=== PATIENT | male | born 1950 | race Caucasian/White ===

== ENCOUNTER 2020-03-11 09:56 | Outpatient (REF) | payer MEDICARE, SELFPAY ==
[2020-03-11 13:47] LABS: MANUAL DIFF FLAG NO
[2020-03-11 13:58] LABS: Basophils Percent Auto 0.5 % (0-2); Eosinophils Absolute Auto 0.4 X10*3/uL (0.0-0.4); Eosinophils Percent Auto 6.3 % (0-4); Hematocrit 39.3 % (42-52); Hemoglobin 13.3 g/dl (14.0-18.0); Imm Gran Abs Auto 0.01 X10*3/uL (0.00-0.03); Imm Gran Pct Auto 0.2 % (0.0-0.4); Lymphocytes Absolute Auto 1.1 X10*3/uL (1.2-4.9); Mean Corpuscular HGB Conc 33.8 g/dl (31.0-36.0); Mean Corpuscular Hemoglobin 30.6 pg (27.0-33.0); Mean Corpuscular Volume 90.6 fL (80-98); Monocytes Absolute Auto 0.4 X10*3/uL (0.1-1.2); Monocytes Percent Auto 6.4 % (2-11); Neutrophils Absolute Auto 3.7 X10*3/uL (2.0-8.3); Neutrophils Percent Auto 66.6 % (45-73); Platelet Count 268 X10*3/uL (160-400); Red Blood Count 4.34 X10*6/uL (4.60-5.80); Red Cell Distribution Width 12.3 % (11.0-16.0); White Blood Count 5.6 X10*3/uL (4.8-10.8)
[2020-03-11 14:15] LABS: Alanine Aminotransferase 24 U/L (0-40); Albumin Level 4.2 g/dL (3.5-5.0); Alkaline Phosphatase 70 U/L (39-117); Aspartate Amino Transferase 22 U/L (5-37); Bilirubin Direct 0.3 mg/dL (0.0-0.5); Bilirubin Total 0.9 mg/dL (0.0-1.0); C Reactive Protein 0.07 mg/dL (< or = 0.50); Rheumatoid Factor < 15.0 IU/mL (<15.0); Total Protein 6.8 g/dL (6.5-8.0)
[2020-03-11 14:38] LABS: Thyroid Stimulating Hormone 1.77 mIU/mL (0.32-4.0)
[2020-03-11 14:56] LABS: Erythrocyte Sedimentation Rate 14 MM/HR (0-15)
[2020-03-12 19:11] LABS: Anti Nuclear Antibody Screen NEGATIVE (NEGATIVE)
[2020-03-13 09:49] LABS: ANA Additional Testing NOT INDICATED
== END 2020-03-11 09:57 | disposition home or self-care (01) ==
LOC: HO.10HDL 09:56
PROVIDERS: Visit Provider Family Medicine
DX: R63.4 Abnormal weight loss (principal); L29.9 Pruritus, unspecified
CPT/HCPCS: 36415; 80076; 82310; 82378; 84443; 85025; 85652; 86038; 86039; 86140; 86431

== ENCOUNTER 2020-09-30 09:16 | Outpatient (REF) | payer MEDICARE, SELFPAY ==
[2020-09-30 11:09] LABS: Alanine Aminotransferase 21 U/L (0-40); Anion Gap 10 (12-20); Blood Urea Nitrogen 21 mg/dL (9-16); Carbon Dioxide 27 mmol/L (22-29); Chloride 109 mmol/L (96-108); Cholesterol 130 mg/dL; Estimated Glomerular Filt Rate 46; HDL Cholesterol 37 mg/dL; LDL Cholesterol Calculated 76 mg/dl; Potassium 4.4 mmol/L (3.3-5.1); Sodium 142 mmol/L (135-145); Triglycerides 88 mg/dL
== END 2020-09-30 09:17 | disposition home or self-care (01) ==
LOC: HO.10HDL 09:16
PROVIDERS: Absent Provider Internal Medicine Cardiovascular Disease; Visit Provider Family Medicine
DX: I10 Essential (primary) hypertension (principal); E78.00 Pure hypercholesterolemia, unspecified; Z79.899 Other long term (current) drug therapy
CPT/HCPCS: 36415; 80051; 80061; 82550; 82565; 84460; 84520

== ENCOUNTER 2021-02-11 09:20 | Outpatient (REF) | payer MEDICARE, SELFPAY ==
[2021-02-11 10:50] LABS: Alanine Aminotransferase 21 U/L (0-40); Albumin Level 4.2 g/dL (3.5-5.0); Alkaline Phosphatase 66 U/L (39-117); Anion Gap 12 (12-20); Aspartate Amino Transferase 18 U/L (5-37); Bilirubin Total 0.8 mg/dL (0.0-1.0); Blood Urea Nitrogen 23 mg/dL (9-16); Calcium 9.3 mg/dL (8.4-10.2); Carbon Dioxide 25 mmol/L (22-29); Chloride 110 mmol/L (96-108); Cholesterol 126 mg/dL; Estimated Glomerular Filt Rate 46; Glucose Fasting 101 mg/dL (60-99); HDL Cholesterol 39 mg/dL; LDL Cholesterol Calculated 69 mg/dl; Potassium 4.4 mmol/L (3.3-5.1); Sodium 143 mmol/L (135-145); Total Protein 6.8 g/dL (6.5-8.0); Triglycerides 90 mg/dL
[2021-02-11 11:18] LABS: Syphilis Screen Nonreactive (Nonreactive)
[2021-02-13 05:21] LABS: Lyme Abs Screen <0.90 index
[2021-02-14 12:21] LABS: IgA 302 mg/dL (70-320); IgG 1112 mg/dL (600-1540); IgM 63 mg/dL (50-300)
== END 2021-02-11 09:21 | disposition home or self-care (01) ==
LOC: HO.10HDL 09:20
PROVIDERS: Absent Provider Nurse Practitioner Family; Visit Provider Psychiatry & Neurology Neurology
DX: G62.9 Polyneuropathy, unspecified (principal)
CPT/HCPCS: 36415; 80053; 80061; 82784; 86617; 86618; 86780

== ENCOUNTER 2021-02-23 07:41 | Outpatient (REF) | payer MEDICARE, SELFPAY ==
[2021-02-23] VITALS (9 sets, daily range): BP systolic 121–154; BP diastolic 65–81; PULSE 62–70; RESP 16; TEMP 36.3; O2SAT 99; BMI 26.0
[2021-02-23 09:19] LABS: Glucose CSF 64 mg/dL; Total Protein CSF 63.8 mg/dL (15-45)
[2021-02-23 09:50] LABS: Oligoclonal Serum Yes
[2021-02-23 10:21] LABS: CSF Appearance Clear, Colorless; CSF Tube # 1
[2021-02-23 10:48] LABS: Appearance CSF CLEAR; CSF Tube # 4; Color CSF COLORLESS; Lymphocytes CSF 100 %; Red Blood Cell CSF 2 MM*3; White Blood Cell CSF 2 MM*3
--- NOTE | 2021-02-23 14:16 | OP_ITS ---
SURGEON: Rocco Ocasio MD PREOPERATIVE DIAGNOSIS: POSTOPERATIVE DIAGNOSIS: PROCEDURE PERFORMED: Lumbar puncture. ESTIMATED BLOOD LOSS: COMPLICATIONS: ANESTHESIA: ASSISTANTS: SPECIMENS: INDICATION: Peripheral neuropathy. DESCRIPTION OF PROCEDURE: Risks and benefits of lumbar puncture were discussed with him including possibility of low back pain, nerve injury, infection, intractable headache and allergy to local anesthesia. Questions were answered before the procedure. He was placed in left lateral position. 1% lidocaine was injected in L5-S1 space, but in spite of repeated trials, CSF cavity could not be reached. Same procedure was repeated at L3-4 space and CSF cavity was reached. Opening pressure was 14 cm. About 5-6 mL of clear CSF was obtained. Trocar was replaced and needle removed. Area was cleaned and a Band-Aid applied. He tolerated the procedure quite well and CSF was sent to the lab. MD ALLEN TovarK/MODL / [id number]
[2021-03-01 07:47] LABS: Albumin 3.7 g/dL (3.2-4.6); IgG 1070 mg/dL (600-1540); IgG Synthesis Rate -3.7 mg/24 h (-9.9-3.3); IgG, CSF 5.5 mg/dL (0.8-7.7)
== END 2021-02-23 11:05 | disposition home or self-care (01) ==
LOC: HO.MS 07:41
PROVIDERS: PCP Family Medicine; Visit Provider Psychiatry & Neurology Neurology
PROC: 009U3ZZ Drainage of Spinal Canal, Percutaneous Approach (ICD-10-PCS; CPT 62270; principal; 2021-02-23 08:00)
DX: G62.9 Polyneuropathy, unspecified (principal); E78.00 Pure hypercholesterolemia, unspecified
CPT/HCPCS: 62270; 82042; 82945; 83916; 84157; 87015; 87070; 87205; 89051

== ENCOUNTER 2021-10-07 07:25 | Outpatient (REF) | payer MEDICARE, SELFPAY ==
[2021-10-07 11:54] LABS: Alanine Aminotransferase 26 U/L (0-40); Anion Gap 12 (12-20); Blood Urea Nitrogen 25 mg/dL (9-16); Carbon Dioxide 25 mmol/L (22-29); Chloride 109 mmol/L (96-108); Estimated Glomerular Filt Rate 44; Potassium 4.6 mmol/L (3.3-5.1); Sodium 141 mmol/L (135-145)
== END 2021-10-07 07:26 | disposition home or self-care (01) ==
LOC: HO.WFDLDS 07:25
PROVIDERS: Visit Provider Family Medicine
DX: I10 Essential (primary) hypertension (principal); E78.00 Pure hypercholesterolemia, unspecified; Z79.899 Other long term (current) drug therapy
CPT/HCPCS: 36415; 80051; 82550; 82565; 84460; 84520

== ENCOUNTER 2022-08-25 06:26 | Outpatient (REF) | payer MEDICARE, SELFPAY ==
[2022-08-25 08:07] LABS: Alanine Aminotransferase 27 U/L (0-40); Anion Gap 12 (12-20); Aspartate Amino Transferase 23 U/L (5-37); Blood Urea Nitrogen 26 mg/dL (9-16); Carbon Dioxide 27 mmol/L (22-29); Chloride 111 mmol/L (96-108); Cholesterol 134 mg/dL; Estimated Glomerular Filt Rate 43; HDL Cholesterol 38 mg/dL; LDL Cholesterol Calculated 80 mg/dl; Potassium 4.6 mmol/L (3.3-5.1); Sodium 145 mmol/L (135-145); Triglycerides 84 mg/dL
[2022-08-25 08:25] LABS: Prostate Specific Antigen 2.67 ng/mL (<0.05-4.0)
== END 2022-08-25 06:27 | disposition home or self-care (01) ==
LOC: HO.LAB 06:26
PROVIDERS: PCP Family Medicine; Visit Provider Family Medicine
DX: E78.00 Pure hypercholesterolemia, unspecified (principal); N40.0 Benign prostatic hyperplasia without lower urinary tract symptoms; I10 Essential (primary) hypertension; Z79.899 Other long term (current) drug therapy; Z12.5 Encounter for screening for malignant neoplasm of prostate
CPT/HCPCS: 36415; 80051; 80061; 82550; 82565; 84153; 84450; 84460; 84520

== ENCOUNTER 2023-03-16 06:26 | Outpatient (REF) | payer MEDICARE, SELFPAY ==
[2023-03-16 07:49] LABS: Anion Gap 11 (12-20); Blood Urea Nitrogen 23 mg/dL (9-16); Carbon Dioxide 23 mmol/L (22-29); Chloride 110 mmol/L (96-108); Estimated Glomerular Filt Rate 46; Potassium 4.3 mmol/L (3.3-5.1); Sodium 140 mmol/L (135-145)
== END 2023-03-16 06:27 | disposition home or self-care (01) ==
LOC: HO.LAB 06:26
PROVIDERS: PCP Family Medicine; Visit Provider Family Medicine
DX: I10 Essential (primary) hypertension (principal)
CPT/HCPCS: 36415; 80051; 82565; 84520

== ENCOUNTER 2023-04-20 08:37 | Outpatient (REF) | payer MEDICARE, SELFPAY ==
--- NOTE | ~2023-04-20 | XR_ITS ---
EXAMINATION: XR CHEST CLINICAL INFORMATION: Wheezing of one month's duration. COMPARISON: None available. TECHNIQUE: Frontal and lateral views of the chest were obtained. FINDINGS: The heart, great vessels, pulmonary vasculature and mediastinum are normal. The lungs show no focal infiltrate, effusion or pneumothorax. At the left apex, a 7 mm bilobed nodule is questioned, versus a focus of scarring. There is mild elevation of the right hemidiaphragm. There is no acute osseous abnormality. There is multi-level thoracolumbar degenerative disc disease and spondylosis. XR/XR chest 2V IMPRESSION: 1. No focal infiltrate or congestive heart are seen. 2. A 7 mm left apical nodule is questioned, versus focal pleural/parenchymal scarring. In the absence of outside comparison radiographs documenting long-term stability, recommend apical lordotic and oblique views to further assess. Should this finding persists, consider CT evaluation.
== END 2023-04-20 08:38 | disposition home or self-care (01) ==
LOC: HO.XRAY 08:37
PROVIDERS: PCP Family Medicine; Visit Provider Family Medicine
DX: I25.10 Atherosclerotic heart disease of native coronary artery without angina pectoris (principal); R05.9 Cough, unspecified; R06.2 Wheezing
CPT/HCPCS: 71046

== ENCOUNTER 2023-05-07 10:36 | Outpatient (REF) | payer MEDICARE, SELFPAY ==
--- NOTE | ~2023-05-07 | CT_ITS ---
EXAMINATION: CT CHEST WITHOUT CONTRAST CLINICAL INFORMATION: Pulmonary nodule. COMPARISON: Correlation made with chest x-ray performed 04/20/2023. TECHNIQUE: Multidetector volumetric CT imaging of the chest was done. Axial MIP volume rendering provided. Sagittal and coronal reformatted images were obtained. This CT examination was performed using dose optimization techniques as appropriate, variously including the following: *Automated exposure control *Adjustment of mA and/or kV according to patient size (this includes techniques or standardized protocols for targeted exams where dose is matched to indication/reason for exam; i.e. extremities or head) *Use of iterative reconstruction technique DLP: 297 mGy-cm FINDINGS: CHOCOLATE COATER: There are increased markings at the left lung base. LUNGS: There is bilateral lower lung field bronchial thickening more pronounced on the left with patchy infiltrative change at both lung bases. There is minimal infiltrative change in the right middle lobe. There is biapical pleural thickening. No left apical parenchymal nodule is seen. 4.5 mm right upper lobe parenchymal nodule. MEDIASTINUM: The mediastinum is normal. CORONARY ARTERY CALCIFICATION: None visualized on this study. PLEURA: There is no pleural effusion. No pleural mass or thickening. AXILLA: No lymphadenopathy. UPPER ABDOMEN: Unremarkable. OSSEOUS STRUCTURES: There is diffuse moderate thoracolumbar disc degenerative change. CT/CT chest wo IV con IMPRESSION: Bilateral lower lobe bronchial thickening with patchy bilateral lower lobe infiltrative change. Consider early versus post infectious change. Biapical pleural nodularity/scarring. 4.5 mm right upper lobe pulmonary nodule. Per the 2017 revised Fleischner Society guidelines, no routine follow up is necessarily required in low-risk patients, and consideration of 12-month followup CT is recommended for patients at high-risk for the development of pulmonary neoplasm. Fleischner guidelines were followed.
== END 2023-05-07 10:37 | disposition home or self-care (01) ==
LOC: HO.CT 10:36
PROVIDERS: PCP Family Medicine; Visit Provider Family Medicine
DX: R91.1 Solitary pulmonary nodule (principal)
CPT/HCPCS: 71250

== ENCOUNTER 2023-07-16 08:14 | Outpatient (REF) | payer MEDICARE, SELFPAY ==
--- NOTE | ~2023-07-16 | FL_ITS ---
EXAMINATION: XR FLUOROSCOPY UPPER GI WITH AIR CLINICAL INFORMATION: Postprandial cough. Dysphagia. COMPARISON: No prior fluoroscopy study. TECHNIQUE: Fluoroscopic air contrast upper GI examination was performed utilizing standard techniques with thin and thick barium and effervescent granules. Numerous spot images were obtained. FINDINGS: Hypopharynx demonstrates no definite laryngeal penetration or glottic aspiration. 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 Dual and single contrast images of the esophagus demonstrate a dilated esophagus with a mildly thickened mucosal folds. No definite erosions. No evidence of stricture or mass. Nonpropulsive tertiary contractions are noted in the mid and distal esophagus. A small to moderate size type I hiatal hernia is present. Gastroesophageal reflux is seen up to the thoracic inlet. Dual contrast and single contrast images of the stomach demonstrated normal contour and mucosal pattern without evidence of mass, ulceration, or other abnormality. Contrast freely passed into the gastric antrum and duodenal bulb without delay. Single and air-contrast images of the duodenal bulb demonstrate no abnormality. The duodenal sweep has a normal appearance, course, and mucosal fold appearance. No malrotation. The imaged proximal jejunum has a normal fold pattern and caliber. FLUOROSCOPY TIME: 4 minutes 23 seconds Number of Spot Images: 10 Number of Cine: 10 DOSE AREA PRODUCT: 1393 uGy-m2 (microgray-meter squared) FL/FL barium swallow IMPRESSION: 1. Patulous esophagus with mild dysmotility present. Mild thickening of the esophageal folds could represent reflux esophagitis. No definite ulceration. 2. Small to moderate-sized type I hiatal hernia. 3. Significant gastroesophageal reflux. 4. There is no evidence of tracheal penetration or glottic aspiration. There may be mild cricopharyngeal achalasia. This procedure was performed by Rome Andrews PA-C, and supervised by Dr. Escobedo
== END 2023-07-16 08:15 | disposition home or self-care (01) ==
LOC: HO.XRAY 08:14
PROVIDERS: PCP Family Medicine; Visit Provider Family Medicine
DX: R13.10 Dysphagia, unspecified (principal); K21.9 Gastro-esophageal reflux disease without esophagitis; R05.9 Cough, unspecified
CPT/HCPCS: 74220

== ENCOUNTER → 2023-07-16 08:16 | Outpatient (BNV) | payer MEDICARE, SELFPAY | PROVIDERS: PCP Family Medicine; Visit Provider Physician Assistant Surgical | DX: R13.10 Dysphagia, unspecified (principal) | CPT/HCPCS: 74221 ==

== ENCOUNTER 2023-08-09 06:36 | Outpatient (REF) | payer MEDICARE, SELFPAY ==
[2023-08-09 07:39] LABS: Cholesterol 136 mg/dL (<200); HDL Cholesterol 42 mg/dL (>40); LDL Cholesterol Calculated 76 mg/dL (<100); Triglycerides 93 mg/dL (<150)
== END 2023-08-09 06:37 | disposition home or self-care (01) ==
LOC: HO.LAB 06:36
PROVIDERS: PCP Family Medicine; Visit Provider Physician Assistant Medical
DX: I25.10 Atherosclerotic heart disease of native coronary artery without angina pectoris (principal); I10 Essential (primary) hypertension
CPT/HCPCS: 36415; 80061

== ENCOUNTER 2023-10-19 06:25 | Outpatient (REF) | payer MEDICARE, SELFPAY ==
--- NOTE | ~2023-10-19 | XR_ITS ---
EXAMINATION: XR CHEST CLINICAL INFORMATION: Cough COMPARISON: Chest x-rays of 04/20/[address] of 05/07/2023 TECHNIQUE: 2 views of the chest were obtained. FINDINGS: Cardiomediastinal silhouette is stable and normal. The lungs are adequately symmetrically expanded. No focal consolidation, changes of congestion, pleural effusions or pneumothorax are seen. Visualized upper abdomen is unremarkable. Regional skeleton is intact. Multilevel mild degenerative changes of the spine. XR/XR chest 2V IMPRESSION: No convincing radiographic evidence of pneumonia. No acute pulmonary process.
== END 2023-10-19 06:26 | disposition home or self-care (01) ==
LOC: HO.XRAY 06:25
PROVIDERS: PCP Family Medicine; Visit Provider Family Medicine
DX: K21.9 Gastro-esophageal reflux disease without esophagitis (principal); R05.9 Cough, unspecified
CPT/HCPCS: 71046

== ENCOUNTER 2024-01-18 07:24 | Outpatient (REF) | payer MEDICARE, SELFPAY ==
[2024-01-18 08:06] LABS: Alanine Aminotransferase 22 U/L (0-40); Anion Gap 11 (12-20); Aspartate Amino Transferase 21 U/L (5-37); Blood Urea Nitrogen 29 mg/dL (9-16); Carbon Dioxide 26 mmol/L (22-29); Chloride 110 mmol/L (96-108); Estimated Glomerular Filt Rate 39; Potassium 4.8 mmol/L (3.3-5.1); Sodium 142 mmol/L (135-145)
== END 2024-01-18 07:25 | disposition home or self-care (01) ==
LOC: HO.LAB 07:24
PROVIDERS: PCP Family Medicine; Visit Provider Family Medicine
DX: I10 Essential (primary) hypertension (principal); E78.00 Pure hypercholesterolemia, unspecified; Z79.899 Other long term (current) drug therapy
CPT/HCPCS: 36415; 80051; 82550; 82565; 84450; 84460; 84520

== ENCOUNTER 2024-06-13 06:19 | Outpatient (REF) | payer MEDICARE, SELFPAY ==
[2024-06-13 07:15] LABS: Anion Gap 11 (12-20); Blood Urea Nitrogen 31 mg/dL (9-16); Carbon Dioxide 26 mmol/L (22-29); Chloride 111 mmol/L (96-108); Estimated Glomerular Filt Rate 43; Potassium 4.8 mmol/L (3.3-5.1); Sodium 143 mmol/L (135-145)
== END 2024-06-13 06:20 | disposition home or self-care (01) ==
LOC: HO.LAB 06:19
PROVIDERS: PCP Family Medicine; Visit Provider Family Medicine
DX: I10 Essential (primary) hypertension (principal)
CPT/HCPCS: 36415; 80051; 82565; 84520

== ENCOUNTER 2024-10-09 09:44 | Outpatient (REF) | payer MEDICARE, SELFPAY ==
--- OUTSIDE RECORDS SUMMARY | 2024-10-09 10:05 | XMS_ITS | Clinical Summary ---
Author Organization [address] [place] [address] [address] [place] [address] Phone Care Team Providers Care Phlebotomy Services Technician Name Role Phone Wili Perkins MD Primary Care Provider [phone] Allergies No known active allergies Medications omeprazole (PriLOSEC) [address] capsule Take 1 capsule (40 mg total) by mouth 1 (one) time each day. Active multivit-min/iron /folic acid/K (ADULTS MULTIVITAMIN ORAL) Take by mouth 1 (one) time each day. Active aspirin 81 mg EC tablet Take 1 tablet (81 mg total) by mouth 1 (one) time each day. Active metoprolol succinate (TOPROL-XL) 50 mg 24 hr tablet Take 1 tablet (50 mg total) by mouth 1 (one) time each day. Active atorvastatin (LIPITOR) 80 mg tablet TAKE 1 TABLET BY MOUTH EVERY DAY 90 tablet 1 5 Active Active Problems Problem Noted Date Diagnosed Date Bilateral lower extremity edema 09/19/2024 Assessment & Plan (09/19/2024 10:39 AM EDT): The patient describes bilateral lower extremity edema that is most likely consistent with venous insufficiency. He does not have any centrally reported symptoms of volume overload. I offered an lower extremity venous ultrasound to officially diagnose venous insufficiency, but he elects to defer this at this time. I did recommend compression stockings especially when he is on his feet at work. He will look into these. I offered a prescription, but he will look on [facility]. I recommended no less than 20 mmHg compression. He will let me know if he changes his mind and wants a prescription for the compression stockings or to pursue the ultrasound. S3 (third heart sound) 03/31/2022 Overview (05/28/2024): Last Assessment & Plan: Likely nonpathologic. Will obtain echo. He has no symptoms. Coronary disease 02/11/2021 Overview (09/19/2024): - status post NIRAJ to 90% ostial LAD lesion in 2015 for anginal symptom of very easily induced chest discomfort on exertion - The remainder of his vessel showed normal left main, minimal luminal irregularities of the left circumflex, 35% proximal RCA disease - His most recent echocardiogram is from 04/2022 showing normal LVEF 55 to 60%, normal LV size, mild concentric LVH, no wall motion abnormalities, normal biatrial size, enlarged RV size though normal global systolic function, without hemodynamically significant valve disease Assessment & Plan (09/19/2024 10:37 AM EDT): The patient does not have any anginal symptoms to his current MET workload. He remains active. He states that his angina was clearly centrally located chest discomfort with minimal exertion. He will continue his current regimen of aspirin, beta-steffen and statin. He will notify us immediately of any changes in his current condition. Hyperlipidemia 02/11/2021 Assessment & Plan (09/19/2024 10:40 AM EDT): Patient is LDL was well-controlled on most recent check in 07/2023. He tells me that he has labs pending from his PCP. Would appreciate a copy of his most recent labs once they are available to his PCP. Hypertension 02/11/2021 Assessment & Plan (09/19/2024 10:38 AM EDT): The patient blood pressure is robust in office today. He states that it was better controlled yesterday at his PCPs visit. Before we add another medication to his regimen, would ask the patient to increase his exercise, specifically his walking. The benefits of walking on his mental and physical health are discussed with the patient. He does understand and agree. Should his blood pressure remain elevated despite increased exercise, would add ARB if his renal function and electrolytes allow. Encounters Date Type Department Care Team Description 09/19/2024 10:10 AM EDT Office Visit [facility] [address] [place] [address] Aleyda Houston NP Hypertension, unspecified type (Primary Dx); Coronary artery disease involving [place] coronary artery of [place] heart without angina pectoris; Bilateral lower extremity edema; Pure hypercholesterolemia from Last 3 Months Social History Tobacco Use Types Packs/Day Years Used Date Smoking Tobacco: Former Smokeless Tobacco: Never Alcohol Use Standard Drinks/Week Comments Yes 0 (1 standard drink = 0.6 oz pur e alcohol) Sex and Gender Information Value Date Recorded Sex Assigned at Not on file Legal Sex Male 3:34 PM EST Gender Identity Not on file Sexual Orientation Not on file Obstetrics History Last Filed Vital Signs Vital Sign Reading Time Taken Comments Blood Pressure 144/80 09/19/2024 10:05 AM EDT Pulse 67 09/19/2024 10:05 AM EDT Temperature - - Respiratory Rate - - Oxygen Saturation 98% 09/19/2024 10: 05 AM EDT Inhaled Oxygen Concentration - - Weight 85.2 kg (187 lb 12.8 oz) 025 10:05 AM EDT Height 182.9 cm (6') 09/19/2024 10:05 AM EDT Body Mass Index 25.47 09/19/2024 10:05 AM EDT Plan of Treatment Health Maintenance Due Date Last Done Comments Pneumococcal Vaccine: 50+ Years (1 of 1 - PCV) 2000 Zoster Vaccines (1 of 2) 2000 Abdominal Aortic Aneurysm (AAA) Screen 04/19/2022 Cholesterol Screening (Lipid Panel) 04/19/2022 Colorectal Cancer Screening: Colonoscopy 04/19/2022 Depression Screening 04/19/2022 Falls Risk Assessment 04/19/2022 Hepatitis C Screening 04/19/2022 Medicare Annual Wellness Visit 04/19/2022 Social Influencers of Health Screening 04/19/2022 Hypertension/CHF/CAD Annual BMP Blood Test 05/03/2022 DTaP,Tdap,and Td Vaccines (2 - Td or Tdap) 08/22/2022 08/22/2012 COVID-19 Vaccine (4 - 2023-2 5 season) 2024 03/31/2021, 08/14/2020, 07/23/2020 Influenza Vaccine (Season Ended) 2025 RSV Immunization Adult Patients (1 - 1-dose 75+ series) 2025 HIB Vaccines Aged Out No longer eligi ble based on patient's age to complete this topic HPV Vaccines Aged Out No longer eligi ble based on patient's age to complete this topic Hepatitis A Vaccines Aged Out No long er eligible based on patient's age to complete this topic Hepatitis B Vaccines Aged Out No long er eligible based on patient's age to complete this topic IPV Vaccines Aged Out No longer eligi ble based on patient's age to complete this topic MMR Vaccines Aged Out No longer eligi ble based on patient's age to complete this topic Meningococcal ACWY Vaccine Aged Out N o longer eligible based on patient's age to complete this topic Meningococcal B Vaccine Aged Out No l onger eligible based on patient's age to complete this topic RSV Immunization Patients Under 20 months Aged Out No longer eligible b ased on patient's age to complete this topic Varicella Vaccines Aged Out No longer eligible based on patient's age to complete this topic Procedures Procedure Name Priority Date/Time Associated Diagnosis Comments ECG 12-LEAD Routine 09/19/2024 10:40 AM EDT Hypertension, unspecified type from Last 3 Months Results * ECG 12 lead (09/19/2024 10:40 AM EDT) 09/19/2024 10:1 0 AM EDT 09/19/2024 10:16 AM EDT us Aleyda Houston NP ECG ORDERABLES Final Result GEMUSE from Last 3 Months Insurance [place] [address] [employer] [address] [place] [address] Care Teams Phlebotomy Services Technician Relationship Specialty Start Date End Date Wili Perkins MD [address] [place] [address] [address] [place] [address] PCP - General 08/26/14
[2024-10-09 11:32] LABS: Alanine Aminotransferase 24 U/L (0-40); Anion Gap 14 (12-20); Aspartate Amino Transferase 28 U/L (5-37); Blood Urea Nitrogen 30 mg/dL (9-16); Carbon Dioxide 26 mmol/L (22-29); Chloride 109 mmol/L (96-108); Cholesterol 119 mg/dL (<200); Estimated Glomerular Filt Rate 44; HDL Cholesterol 38 mg/dL (>40); LDL Cholesterol Calculated 68 mg/dL (<100); Potassium 4.5 mmol/L (3.3-5.1); Sodium 144 mmol/L (135-145); Triglycerides 67 mg/dL (<150)
== END 2024-10-09 09:45 | disposition home or self-care (01) ==
LOC: HO.LAB 09:44
PROVIDERS: PCP Family Medicine; Visit Provider Family Medicine
DX: I10 Essential (primary) hypertension (principal); E78.00 Pure hypercholesterolemia, unspecified; Z79.899 Other long term (current) drug therapy
CPT/HCPCS: 36415; 80051; 80061; 82550; 82565; 84450; 84460; 84520

== ENCOUNTER 2025-01-14 09:38 | Outpatient (AMB) | payer MEDICARE, SELFPAY ==
--- NOTE | 2025-01-14 09:43 | A.OFFPC_ITS ---
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 Required: No Accompanied by: Self / Same As Patient Allergies No Known Allergies Allergy (Unverified 01/14/25 09:43) Tobacco use date assessed: 01/14/25 Fall risk assessment: No Falls in past year Last assessed Fall Risk: 01/14/25 Dental Screening Dental Screen Date: 01/14/25 Did you have a dental visit in the last 12 months?: Yes Did you have a dental problem in the last 6 months where you did not have access to dental care?: No Was dental information given to patient?: No HPI HPI Comments History of Present Illness Details 74-year-old male with history of hyperte nsion, hypercholesterolemia, CKD stage 3, GERD presents to the office today for management of chronic conditions and to establish care. Prior pt of Dr. Perkins 3-4 months ago. CAD- annual [facility] s/p cardiac cath. No cp since. On Toprol, asa, statin. RLE neuropathy- when he walks, he has to dorsiflex his foot before placing it down. Does deny history of footdrop. States he was seen by Neurology with inconclusive testing. He does have a wrap available for stability CKD stage 3- last GFR 44. No nephrotoxins. BPH- w/ LUTS. Waking once nightly. No weak stream, no incomplete bladder emptying. Tolerable Concerns: None Health Maintenance: Last colonoscopy ?2019, [facility]. prn follow up Due for PSA ROS: General: No fevers, malaise, unintentional weight loss HEENT: No blurred vision, diplopia. No sore throat, nasal congestion, rhinorrhea, sinus pain, ear pain Cardiovascular: No chest pain, palpitations, or leg edema Respiratory: No shortness of breath, wheezing, cough GI: No abdominal pain, nausea, vomiting, diarrhea, constipation, melena, hematochezia : No dysuria, hematuria, increased urinary frequency, decreased urinary output MSK: No myalgia, back pain Neuro: No headaches, weakness, paresthesias Skin: No rashes or lesions EXAM: Constitutional - Awake and Alert, No apparent distress Eyes - PERRL Cardiovascular - S1S2, RRR, No edema Respiratory - Normal lung expansion, Normal respiratory effort, No respiratory distress, CTA bilaterally Extremities - no calf tenderness bilaterally, no swelling Skin - Warm/Dry Neurological - Alert & oriented x3 Psychological - Appropriate affect [facility] Medical History (Updated 01/14/25 @ 09:58 by REGINE Garcia) GERD (gastroesophageal reflux disease) CAD (coronary artery disease) Hypertension Hypercholesteremia Surgical History (Updated 01/14/25 @ 09:58 by REGINE Garcia) S/P total knee arthroplasty Hx of heart artery stent Social History (Updated 01/14/25 @ 09:47 by TRE Márquez) Housing: House Alcohol intake: current Alcohol intake frequency: holidays/special occasions only Patient Tobacco Use Status: Never used Tobacco e-Cigarette/Vaping Use: Never Used service: No Current occupational status: employed Cognitive needs: No Hearing needs: No Vision needs: No Questionnaire PHQ-9 Over the last 2 weeks, how often have you been bothered by any of the following problems? 1. Little interest or pleasure in doing things: not at all 2. Feeling down, depressed, or hopeless: not at all 3. Trouble falling or staying asleep, or sleeping too much: not at all 4. Feeling tired or having little energy: several days 5. Poor appetite or overeating: not at all 6. Feeling bad about yourself - or that you are a failure or have let yourself or your family down: not at all 7. Trouble concentrating on things, such as reading the newspaper or watching television: not at all 8. Moving or speaking so slowly that other people could have noticed. Or the opposite - being so fidgety or restless that you have been moving around a lot more than usual: not at all 9. Thoughts that you would be better off or of hurting yourself in some way: not at all Total score: 1 Depression Screening Interpretation: Negative Depression Screening Done: Yes 19427 - PHQ-9 Billing: Yes Source: Developed by Drs. Brendon Hansen, Sandra Victoria, Kannan Zhu and colleagues, with an educational manny from [employer]. Thrive Questionnaire I am a: Patient What is your living situation today?: I have a steady place to live Within the past 12 months, did the food you bought not last and you didn't have the money to get more?: Never true Within the past 12 months, did you worry whether your food would run out before you got money to buy more?: Never true Do you have trouble paying for medicines?: No Do you have trouble getting transportation to medical appointments?: No Do you have trouble paying your heating and electricity bill?: No Do you have trouble taking care of your child, family member or friend?: No Do you have trouble with day-to-day activities such as bathing, preparing meals, shopping, managing finances, etc.?: No Are you currently unemployed and looking for a job?: No Are you interested in more education?: No THRIVE Score: 0 JUAREZ-7 AMB Questionnaire JUAREZ-7 Feeling nervous, anxious, or on edge: 0 = Not at all Not being able to stop or control worryin = Not at all Worrying too much about different things: 0 = Not at all Trouble relaxin = Not at all Being so restless that it is hard to sit still: 0 = Not at all Becoming easily annoyed or irritable: 0 = Not at all Feeling afraid as if something awful might happen: 0 = Not at all Total JUAREZ-7 score (0-4 normal; 5-9 mild; 10-14 moderate; 15-21 severe): 0 Source: Developed by Drs. Brendon Hansen, Sandra Victoria, Kannan Zhu and colleagues, with an educational manny from [employer]. JUAREZ-7 Assessment Billing JUAREZ-7 Assessment Tool: JUAREZ-7 Assessment 32759 Physical exam (Primary Care) Vital Signs: Last Vital Signs Temp 97.8 F 01/14/25 09:47 Pulse 2 L 01/14/25 09:47 Resp 18 01/14/25 09:47 BP 136/84 01/14/25 09:47 Pulse Ox 98 01/14/25 09:47 Oxygen Delivery Method Room Air 01/14/25 09:47 BMI result Body Mass Index 25.1 Tobacco/Smoking Status: Tobacco use Status Tobacco use date assessed 01/14/25 01/14/25 09:50 Patient Tobacco Use Status Never used Tobacco 01/14/25 09:50 e-Cigarette/Vaping Use Never Used 01/14/25 09:50 PHQ-9: PHQ-9 Score PHQ-9: Total score 1 01/14/25 10:14 Depression Screening Interpretation: Negative Coding Level of Care Code New Pt Level 4 (23483) Complex EM visit Add On G2211 Diagnoses Hypercholesteremia E78.00 Hypertension I10 CAD (coronary artery disease) I25.10 GERD (gastroesophageal reflux disease) K21.9 Additional Codes JUAREZ-7 Assessment Billing - JUAREZ-7 Assessment Tool: JUAREZ-7 Assessment 21323 ([id number]) PHQ-9 - 54894 - PHQ-9 Billing: Yes ([id number]) Assessment & Plan Assessment & Plan (1) Hypercholesteremia: Code(s): E78.00 - Pure hypercholesterolemia, unspecified Category: Medical Plan: Lipid panel ordered. Continue atorvastatin. Diet low in saturated fats and highly processed foods (2) Hypertension: Code(s): I10 - Essential (primary) hypertension Category: Medical Plan: Controlled. Continue metoprolol (3) CAD (coronary artery disease): Code(s): I25.10 - Atherosclerotic heart disease of [place] coronary artery without angina pectoris Category: Medical Plan: Stable. No recent anginal chest pain. Will obtain notes from [facility]. Continue following with cardiology as scheduled. Continue aspirin, statin, metoprolol (4) GERD (gastroesophageal reflux disease): Code(s): K21.9 - Gastro-esophageal reflux disease without esophagitis Category: Medical Plan: Stable. Continue omeprazole Plan Follow-up in the office in 6 months. Labs ordered as below Orders: Orders Basic Metabolic Panel 4 Months E78.00 - Pure hypercholesterolemia, unspecified, I10 - Essential (primary) hypertension, I25.10 - Atherosclerotic heart disease of [place] coronary artery without angina pectoris, K21.9 - Gastro-esophageal reflux disease without esophagitis Liver Panel 4 Months E78.00 - Pure hypercholesterolemia, unspecified, I10 - Essential (primary) hypertension, I25.10 - Atherosclerotic heart disease of [place] coronary artery without angina pectoris, K21.9 - Gastro-esophageal reflux disease without esophagitis Lipid Panel 4 Months E78.00 - Pure hypercholesterolemia, unspecified, I10 - Essential (primary) hypertension, I25.10 - Atherosclerotic heart disease of [place] coronary artery without angina pectoris, K21.9 - Gastro-esophageal reflux disease without esophagitis Prostate Specific Antigen 4 Months E78.00 - Pure hypercholesterolemia, unspecified, I10 - Essential (primary) hypertension, I25.10 - Atherosclerotic heart disease of [place] coronary artery without angina pectoris, K21.9 - Gastro-esophageal reflux disease without esophagitis
[2025-01-14 09:47] VITALS: BP 136/84; PULSE 2; RESP 18; TEMP 36.6; O2SAT 98; BMI 25.1
--- OUTSIDE RECORDS SUMMARY | 2025-01-14 10:18 | XMS_ITS | Clinical Summary ---
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 I recommended no less than 20 mmHg [...] if his renal function and electrolytes allow. Social History Tobacco Use Types Packs/Day Years [...] Panel) 04/19/2022 Colorectal Cancer Screening: Colonoscopy 04/19/2022 Falls Risk Assessment 04/19/2022 Hepatitis C Screening 04/19/2022 Medicare Annual Wellness Visit 04/19/2022 Social Influencers of Health Screening 04/19/2022 Hypertension/CHF/CAD Annual BMP Blood Test 05/03/2022 DTaP,Tdap,and Td Vaccines (2 - Td or Tdap) 08/22/2022 08/22/2012 COVID-19 Vaccine (4 - 2023-2 5 season) 2024 03/31/2021, 08/14/2020, 07/23/2020 Depression Screening 05/21/2024 Influenza Vaccine (#1) 2025 RSV Immunization Adult Patients (1 - [...] on patient's age to complete this topic Insurance [employer] [address] [place] [address] Care Teams Golf Course Laborer Relationship Specialty Start Date End Date Wili Perkins MD [address] [place] [address] [address] [place] [address] PCP - General 08/26/14
== END 2025-01-14 10:14 | disposition home or self-care (01) ==
LOC: HO.HMCHD 09:39
PROVIDERS: PCP Internal Medicine; Visit Provider Physician Assistant
DX: E78.00 Pure hypercholesterolemia, unspecified (principal); I10 Essential (primary) hypertension; I25.10 Atherosclerotic heart disease of native coronary artery without angina pectoris; K21.9 Gastro-esophageal reflux disease without esophagitis

== ENCOUNTER → 2025-01-14 09:38 | Outpatient (BNVA) | payer MEDICARE, SELFPAY | PROVIDERS: PCP Internal Medicine; Visit Provider Physician Assistant | DX: Z76.89 Persons encountering health services in other specified circumstances (principal); E78.00 Pure hypercholesterolemia, unspecified; I12.9 Hypertensive chronic kidney disease with stage 1 through stage 4 chronic kidney disease, or unspecified chronic kidney disease; N18.30 Chronic kidney disease, stage 3 unspecified; I25.10 Atherosclerotic heart disease of native coronary artery without angina pectoris; K21.9 Gastro-esophageal reflux disease without esophagitis; N40.1 Benign prostatic hyperplasia with lower urinary tract symptoms; Z79.82 Long term (current) use of aspirin; Z79.899 Other long term (current) drug therapy; Z13.31 Encounter for screening for depression | CPT/HCPCS: 96127; 99202 ==